=== PATIENT | female | born 1935 | race Caucasian/White ===

== ENCOUNTER → 2023-12-11 06:19 | Outpatient (REF) | payer MEDICARE, OTHER, SELFPAY ==
[2023-12-11 10:22] LABS: % Basophils 0.8 % (0-2); % Eosinophils 3.8 % (0-6); % Immature Granulocytes 0.5 % (0-0.5); % Lymphocytes 32.1 % (20.5-51.1); % Monocytes 8.1 % (1.7-9.3); % Neutrophils 54.7 % (42.2-75.2); Absolute Basophils 0.1 10^3/uL (0-0.2); Absolute Eosinophils 0.3 10^3/uL (0-0.7); Absolute Lymphocytes 2.1 10^3/uL (1.2-3.4); Absolute Monocytes 0.5 10^3/uL (0.1-0.6); Absolute Neutrophils 3.6 10^3/uL (1.4-6.5); Hematocrit 38.8 % (37.0-47.0); Hemoglobin 12.7 g/dL (12.0-16.0); Mean Corp Hgb Conc. 32.7 g/dL (33.0-37.0); Mean Corpuscular Hgb 28.2 pg (27.0-31.0); Nucleated Red Blood Cells % 0 %; Platelet Count 238 10^3/uL (130-400); Red Blood Cell Count 4.51 10^6/uL (4.20-5.40); Red Cell Dist. Width 14.4 % (11.5-14.5); Reticulocyte Count 1.2 % (0.4-2.8); White Blood Cell Count 6.6 10^3/uL (4.8-10.8)
[2023-12-11 10:48] LABS: ALT (SGPT) 15 U/L (0-35); AST (SGOT) 26 U/L (14-36); Albumin 3.8 g/dl (3.5-5.0); Alkaline Phosphatase 93 U/L (38-126); Amylase 96 U/L (30-110); Blood Urea Nitrogen 17 mg/dl (7-17); Calcium 9.2 mg/dl (8.4-10.2); Carbon Dioxide 28 mmol/L (22-30); Chloride 107 mmol/L (98-107); Creatine Phosphokinase 145 U/L (30-135); GGTP 11 U/L (12-43); Glucose 93 mg/dl (70-99); HDL Cholesterol 59 mg/dl; Iron 95 ug/dl (37-170); LDL Cholesterol, Calculated 160 mg/dl; Lipase 81 U/L (23-300); Magnesium 2.1 mg/dl (1.6-2.3); Potassium 4.1 mmol/L (3.5-5.1); Sodium 141 mmol/L (135-145); Total Bilirubin 0.6 mg/dl (0.2-1.3); Total Cholesterol 246 mg/dl (50-199); Total Protein 6.4 g/dl (6.3-8.2); Triglyceride 138 mg/dl (10-149); Uric Acid 4.1 mg/dl (2.5-6.2); Very Low Density Lipoprotein 27 mg/dl (0-30); eGFR > 60.00
[2023-12-11 10:57] LABS: Percent Saturation 35 % (20-50); Total Iron Binding Capacity 271 ug/dl (265-497)
[2023-12-11 11:05] LABS: Urine Albumin Negative (Neg - Trace); Urine Bilirubin Negative (Negative); Urine Character Clear (Clear); Urine Color Yellow; Urine Glucose Negative (Negative); Urine Ketone Negative (Negative); Urine Leukocyte 2+ (Negative); Urine Nitrite Negative (Negative); Urine Occult Blood 2+ (Negative); Urine Specific Gravity 1.015 (<1.030); Urine Urobilinogen Negative (Neg - 1+)
[2023-12-11 11:12] LABS: Free T4 1.17 ng/dl (0.78-2.19); Vitamin D, 25-OH*** 28.7 ng/mL (30-80)
[2023-12-11 11:25] LABS: TSH 2.72 uIU/ml (0.47-4.68)
[2023-12-11 11:30] LABS: Ferritin 53.8 ng/ml (11.1-264.0)
[2023-12-11 11:42] LABS: Erythrocyte Sed Rate 15 mm/hour (0-20)
[2023-12-11 11:54] LABS: Glycohemoglobin (HgbA1c) 5.8 % (4.0-5.6)
[2023-12-11 12:01] LABS: Vitamin B12 266 pg/ml (239-931)
[2023-12-11 12:11] LABS: Microalbumin, Random Urine 0.9 mg/dl (0.6-1.7); Microalbumin/creatinine Ratio 11.7 mg/g
[2023-12-11 14:34] LABS: Urine Mucus Many; Urine Squamous Cell >30 /LPF (Few)
[2023-12-11 14:35] LABS: Urine Amorphous Seen
[2023-12-11 14:37] LABS: Urine Bacteria Many (Negative); Urine White Cell >100 /HPF (0-5)
[2023-12-11 14:38] LABS: Urine Hyaline Cast 0-2 /LPF (0-2)
[2023-12-12 21:23] LABS: Zinc 56.1 ug/dL (60.0-120.0)
[2023-12-13 15:50] LABS: Rheumatoid Agglutinin Less Than 10 IU (<10 IU)
== END ==
LOC: HWLAB 06:19
PROVIDERS: ATTENDING PHYSICIAN Family Medicine
DX: I49.9 Cardiac arrhythmia, unspecified (principal); E11.9 Type 2 diabetes mellitus without complications; E78.5 Hyperlipidemia, unspecified; E03.9 Hypothyroidism, unspecified; M10.9 Gout, unspecified; E60 Dietary zinc deficiency; E55.9 Vitamin D deficiency, unspecified; M12.9 Arthropathy, unspecified; D64.9 Anemia, unspecified; E61.1 Iron deficiency; E83.42 Hypomagnesemia; N39.0 Urinary tract infection, site not specified; E78.00 Pure hypercholesterolemia, unspecified
CPT/HCPCS: 36415; 80053; 80061; 81003; 81015; 82043; 82150; 82306; 82550; 82570; 82607; 82728; 82746; 82977; 83036; 83540; 83550; 83690; 83735; 84439; 84443; 84550; 84630; 85025; 85045; 85652; 86140; 86430; 87086; 93005

== ENCOUNTER → 2024-03-28 14:44 | Outpatient (REF) | payer MEDICARE, OTHER, SELFPAY | LOC: RAD 14:44 | PROVIDERS: ATTENDING PHYSICIAN Family Medicine | DX: I82.493 Acute embolism and thrombosis of other specified deep vein of lower extremity, bilateral (principal) | CPT/HCPCS: 93970 ==

== ENCOUNTER → 2024-04-11 07:24 | Outpatient (REF) | payer MEDICARE, OTHER, SELFPAY | LOC: DHCBC/DCA 07:24 | PROVIDERS: ATTENDING PHYSICIAN Internal Medicine; FAMILY PHYSICIAN Family Medicine | DX: I49.3 Ventricular premature depolarization (principal); R06.09 Other forms of dyspnea | CPT/HCPCS: 78452; 93017; A9500; J2785 ==

== ENCOUNTER → 2024-04-16 13:55 | Outpatient (REF) | payer MEDICARE, OTHER, SELFPAY | LOC: HWRCS 13:55 | PROVIDERS: ATTENDING PHYSICIAN Internal Medicine; FAMILY PHYSICIAN Family Medicine | DX: I49.3 Ventricular premature depolarization (principal); R06.09 Other forms of dyspnea | CPT/HCPCS: 93306 ==

== ENCOUNTER 2024-04-24 08:55 | Inpatient (IN) | payer MEDICARE, OTHER, SELFPAY ==
[2024-04-02 13:44] VITALS: BMI 24.9
[2024-04-02 14:23] LABS: Hematocrit 34.8 % (37.0-47.0); Hemoglobin 11.3 g/dL (12.0-16.0); Mean Corp Hgb Conc. 32.5 g/dL (33.0-37.0); Mean Corpuscular Hgb 28.8 pg (27.0-31.0); Mean Corpuscular Volume 88.5 fL (81.0-99.0); Mean Platelet Volume 11.2 fL (7.4-10.4); Platelet Count 276 10^3/uL (130-400); Red Blood Cell Count 3.93 10^6/uL (4.20-5.40); White Blood Cell Count 7.4 10^3/uL (4.8-10.8)
[2024-04-02 16:01] LABS: ALT (SGPT) 14 U/L (0-35); AST (SGOT) 23 U/L (14-36); Albumin 3.8 g/dl (3.5-5.0); Alkaline Phosphatase 82 U/L (38-126); Blood Urea Nitrogen 17 mg/dl (7-17); Calcium 9.2 mg/dl (8.4-10.2); Carbon Dioxide 27 mmol/L (22-30); Chloride 104 mmol/L (98-107); Estimated Creatinine Clearance 28 ml/min; Glucose 111 mg/dl (70-99); Potassium 4.1 mmol/L (3.5-5.1); Sodium 143 mmol/L (135-145); Total Bilirubin 0.2 mg/dl (0.2-1.3); Total Protein 6.3 g/dl (6.3-8.2); eGFR 54.19
[2024-04-03 08:21] LABS: Glycohemoglobin (HgbA1c) 5.4 % (4.0-5.6)
[2024-04-21 08:27] VITALS: BMI 24.9
[2024-04-24] VITALS (13 sets, daily range): BP systolic 92–163; BP diastolic 37–80; PULSE 95
[2024-04-24] MEDS: TYLENOL 650 MG PO ×4 (09:43→23:12)
[2024-04-24] MEDS: CELEBREX 200 MG PO (09:43)
--- NOTE | 2024-04-24 13:42 | W.PN.ORTHO ---
Today's Communication / Plan
-
D/c when clinically stable.
Assessment
.
Distal Motor Intact: Yes
Dressing:
Clean, dry and intact.
Assessment:
R knee OA s/p R TKA w/ Dr Presley 04/24/24
DVT prophylaxis - ASA, b/l venous foot pumps
Frequent PVCs w/ palps � monitor on tele
- Continue Metoprolol
GERD and Hiatal hernia - add Pepcid HS
Peripheral neuropathy - consider Gabapentin or Lyrica
Mild pre-op anemia - non-invasive hgb in AM
HLD
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
1st degree AV block
Mild-moderate valvular disease
Chronic BOOGIE
Diverticulitis s/p sigmoid resection, colostomy and subsequent reversal
Fatty liver disease
Hepatic and renal cysts
Multilevel DDD w/ stenosis
Hypothyroidism
OAB
H/o recurrent UTIs
BCC, nose, s/p excision
Anxiety
Osteoporosis
Insomnia
H/o tobacco abuse
Plan
.
Surgery / Date: R TKA w/ Dr Presley 04/24/24
DVT Prophylaxis: Aspirin
Activity:
Out of bed.
PT/OT
Discharge Plan: Home w/ Outpatient PT
Subjective
.
.:
Patient resting comfortably in PACU.
Minimal R knee pain currently reported.
Denies any new significant complaints.
Vital Signs and Labs
.
Vital Signs and Labs:
Lab Results
04/02/24 13:42
04/02/24 13:42
Physical Exam
-
HEENT: No pallor, cyanosis, or jaundice. Throat clear.
NECK: Supple. No JVD.
RESPIRATORY: Lungs clear to auscultation.
CVS: S1, S2 normal. RRR.
ABDOMEN: Soft, non-tender. No distension.
EXTREMITIES: Strength equal, no calf pain with palpation/dorsiflexion. Calves soft.
WOOD TURNING LATHE OPERATOR: AOx3. No focal deficits. acid regenerator grossly intact
[2024-04-24] MEDS: ROXICODONE 5 MG PO ×2 (13:52→23:10)
[2024-04-24] MEDS: NSS 1000 IV (14:20)
--- NOTE | 2024-04-24 14:31 | PTCARENOTE ---
Patient received from PACU in bed; Patient on room air, oxygen saturation 96%; case monitor applied; Right knee primaseal clean/dry/intact; Bilateral pedal pulses +2 to palpation; Patient denies numbness and/or tingling at this time; Patient
denies nausea/vomiting at this time; Patient states pain is a four out of ten at this time; Daughter at bedside; Patient and daughter oriented to room and unit; Call tadeo within reach; Bed in lowest position, wheels locked; Assessment ongoing
[2024-04-24] MEDS: TOPROL XL 25 MG PO (15:01)
[2024-04-24] MEDS: ANCEF 5 IV (17:06)
[2024-04-24] MEDS: ASPIRIN 325 MG PO (17:06)
[2024-04-24] MEDS: DECADRON 4 MG PO (19:59)
[2024-04-24] MEDS: BACTROBAN 2% OINTMENT 1 APPLIC NASAL (19:59)
[2024-04-24] MEDS: SENOKOT 17.2 MG PO (19:59)
[2024-04-24] MEDS: COLACE 100 MG PO (19:59)
[2024-04-24] MEDS: PEPCID 20 MG PO (22:31)
[2024-04-24] MEDS: MELATONIN 5 MG PO (22:32)
[2024-04-24] MEDS: ROXICODONE PO (22:37)
[2024-04-25] MEDS: ANCEF 5 IV (01:10)
[2024-04-25 03:03] VITALS: BP 127/66
[2024-04-25] MEDS: TYLENOL 650 MG PO ×3 (03:08→11:39)
[2024-04-25] MEDS: SYNTHROID 50 MCG PO (05:02)
[2024-04-25] MEDS: SYNTHROID 12.5 MCG PO (05:02)
[2024-04-25 07:25] VITALS: BP 144/71
[2024-04-25] MEDS: ROXICODONE 5 MG PO (08:23)
[2024-04-25] MEDS: CELEBREX 200 MG PO (08:23)
[2024-04-25] MEDS: ASPIRIN 325 MG PO (08:23)
[2024-04-25] MEDS: DECADRON 4 MG PO (08:24)
[2024-04-25] MEDS: TOPROL XL 25 MG PO (08:24)
[2024-04-25] MEDS: COLACE 100 MG PO (08:24)
[2024-04-25] MEDS: SENOKOT 17.2 MG PO (08:24)
[2024-04-25] MEDS: BACTROBAN 2% OINTMENT 1 APPLIC NASAL (08:25)
--- NOTE | 2024-04-25 09:51 | W.PN.ORTHO ---
Today's Communication / Plan
-
Await PT and OT recs.
D/c later today if remaining clinically stable.
Assessment
.
Distal Motor Intact: Yes
Dressing:
Moderate old incisional bleeding at proximal end of dressing - will change.
Assessment:
R knee OA s/p R TKA w/ Dr Presley 04/24/24
DVT prophylaxis - ASA, b/l venous foot pumps
Frequent PVCs w/ palps � maintaining NSR w/ PVCs on tele - asymptomatic
- Continue Metoprolol
GERD and Hiatal hernia - added Pepcid HS
Peripheral neuropathy - consider Gabapentin or Lyrica
Mild pre-op anemia - non-invasive hgb 11.5 POD 1
HLD
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
1st degree AV block
Mild-moderate valvular disease
Chronic BOOGIE
Diverticulitis s/p sigmoid resection, colostomy and subsequent reversal
Fatty liver disease
Hepatic and renal cysts
Multilevel DDD w/ stenosis
Hypothyroidism
OAB
H/o recurrent UTIs
BCC, nose, s/p excision
Anxiety
Osteoporosis
Insomnia
H/o tobacco abuse
Plan
.
Surgery / Date: R TKA w/ Dr Presley 04/24/24
DVT Prophylaxis: Aspirin
Activity:
Out of bed.
PT/OT
Discharge Plan: Home w/ Outpatient PT
Subjective
.
.:
Patient resting comfortably in bed.
R knee pain minimal w/ current pain meds.
Denies any new significant complaints.
Eager for potential d/c today.
Vital Signs and Labs
.
Vital Signs and Labs:
Lab Results
04/02/24 13:42
04/02/24 13:42
Temp Pulse Resp BP Pulse Ox
98.5 F 71 14 144/71 98
04/25/24 07:25 04/25/24 08:24 04/25/24 07:25 04/25/24 08:24 04/25/24 07:25
Non-invasive Hgb result: 11.5
Physical Exam
-
HEENT: No pallor, cyanosis, or jaundice. Throat clear.
NECK: Supple. No JVD.
RESPIRATORY: Lungs clear to auscultation.
CVS: S1, S2 normal. RRR.�
ABDOMEN: Soft, non-tender. No distension.
EXTREMITIES: Expected post-surgical R knee edema. Strength equal no calf pain with palpation/dorsiflexion. Calves soft.
FUEL TESTING TECHNICIAN: AOx3. No focal deficits. hvac installation technician grossly intact
--- NOTE | 2024-04-25 10:02 | CM ---
Reviewed the chart notes and spoke with the patient at the bedside. The patient's daughter resides with her in a one story home with two steps to enter. The patient has a rolling walker, cane, shower chair, shower rails, and a raised toilet seat.
The patient reports no VN or SNF in the past. The patient confirmed her pharmacy of choice is the [facility]. CM continues to be available to patient/family and is monitoring medical plan for needs at discharge.
Plan: Discharge to home when medically stable. Patient has an appointment to start outpatient therapy on Sunday at [facility] in [place]. The patient's daughter will provide transportation home and to appointments.
--- NOTE | 2024-04-25 10:08 | W.DS.TRANS ---
DC Summary - Project Controls Scheduler
-
Discharge Instructions:
Sleep Apnea Risk Low
Discharge Diagnosis/Procedures R knee OA s/p R TKA w/ Dr Presley 04/24/24
Diet Regular
Activity As tolerated,With Walker
Driving Restrictions Not until seen by your Dr
Bathing Restrictions OK to Shower
Other Services PT
Wound Care Dressing to be removed 1 week post-surgery.
Instructions:
Stand-Alone Forms: Total Hip/Knee Replacement D/C
Changes to Home Medications: Yes
Discharge Medications:
DC Medications w/original date entered in [email or web address]
levothyroxine 50 mcg tablet 50 mcg PO DAILY Thyroid 08/03/16
levothyroxine 25 mcg tablet 12.5 mcg PO DAILY Thyroid 04/18/24
melatonin 10 mg tablet 10 mg PO HS PRN Insomnia 04/18/24
metoprolol succinate 25 mg tablet,extended release 24 hr 25 mg PO DAILY Blood Pressure 04/18/24
acetaminophen 500 mg tablet 1,000 mg (2 x 500 mg) PO Q6H #1 tab 04/25/24
aspirin 325 mg tablet 325 mg PO DAILY #30 tabs 04/25/24
celecoxib 100 mg capsule (Celebrex) 100 mg PO BID #30 caps 04/25/24
dexamethasone 4 mg tablet 4 mg PO Q12H Anti-inflammatory #7 tabs 04/25/24
docusate sodium 100 mg capsule 100 mg PO BID #30 caps 04/25/24
lorazepam 0.5 mg tablet 0.5 mg PO BIDPRN PRN anxiety/muscle spasms #1 tab 04/25/24
ondansetron HCl 4 mg tablet 4 mg PO Q6H PRN nausea and vomiting #30 tabs 04/25/24
oxycodone 5 mg tablet 5 - 10 mg (1 - 2 x 5 mg) PO Q6H PRN moderate-severe pain #30 tabs 04/25/24
sennosides 8.6 mg tablet (senna) 17.2 mg (2 x 8.6 mg) PO BID #30 tabs 04/25/24
Home Medication Changes
acetaminophen 500 mg tablet 1,000 mg (2 x 500 mg) PO Q6H #1 tab 04/25/24
aspirin 325 mg tablet 325 mg PO DAILY #30 tabs 04/25/24
celecoxib 100 mg capsule (Celebrex) 100 mg PO BID #30 caps 04/25/24
dexamethasone 4 mg tablet 4 mg PO Q12H Anti-inflammatory #7 tabs 04/25/24
docusate sodium 100 mg capsule 100 mg PO BID #30 caps 04/25/24
ondansetron HCl 4 mg tablet 4 mg PO Q6H PRN nausea and vomiting #30 tabs 04/25/24
oxycodone 5 mg tablet 5 - 10 mg (1 - 2 x 5 mg) PO Q6H PRN moderate-severe pain #30 tabs 04/25/24
sennosides 8.6 mg tablet (senna) 17.2 mg (2 x 8.6 mg) PO BID #30 tabs 04/25/24
Pending Results: No
[2024-04-25 10:29] VITALS: BP 130/66; PULSE 71; O2SAT 99
[2024-04-25] MEDS: PREVNAR 20 0.5 ML IM (10:47)
[2024-04-25 11:08] VITALS: BP 137/56
[2024-04-25 12:56] VITALS: BP 129/63; PULSE 65
== END 2024-04-25 13:04 | disposition home or self-care (01) | DRG 470 ==
LOC: 2 SOUTH 08:55
PROVIDERS: ADMITTING PHYSICIAN Orthopaedic Surgery; FAMILY PHYSICIAN Family Medicine
PROC: 0SRC0J9 Replacement of Right Knee Joint with Synthetic Substitute, Cemented, Open Approach (ICD-10-PCS; 2024-04-24)
DX: M17.11 Unilateral primary osteoarthritis, right knee (principal); K21.9 Gastro-esophageal reflux disease without esophagitis; E78.5 Hyperlipidemia, unspecified
CPT/HCPCS: 36415; 73560; 80053; 83036; 85027; 86850; 86900; 86901; 87070; 90677; 97110; 97116; 97162; 97166; 97535; C1713; C1776; G0009

== ENCOUNTER → 2024-09-23 09:48 | Outpatient (REF) | payer MEDICARE, OTHER, SELFPAY ==
[2024-09-23 12:51] LABS: % Basophils 0.8 % (0-2); % Immature Granulocytes 0.2 % (0-0.5); % Lymphocytes 32.9 % (20.5-51.1); % Monocytes 7.8 % (1.7-9.3); % Neutrophils 56.3 % (42.2-75.2); Absolute Basophils 0.1 10^3/uL (0-0.2); Absolute Eosinophils 0.1 10^3/uL (0-0.7); Absolute Lymphocytes 2.2 10^3/uL (1.2-3.4); Absolute Monocytes 0.5 10^3/uL (0.1-0.6); Absolute Neutrophils 3.7 10^3/uL (1.4-6.5); Hematocrit 38.2 % (37.0-47.0); Hemoglobin 12.2 g/dL (12.0-16.0); Mean Corp Hgb Conc. 31.9 g/dL (33.0-37.0); Mean Corpuscular Hgb 27.6 pg (27.0-31.0); Mean Corpuscular Volume 86.4 fL (81.0-99.0); Mean Platelet Volume 11.5 fL (7.4-10.4); Nucleated Red Blood Cells % 0 %; Platelet Count 278 10^3/uL (130-400); Red Blood Cell Count 4.42 10^6/uL (4.20-5.40); Red Cell Dist. Width 14.6 % (11.5-14.5); White Blood Cell Count 6.6 10^3/uL (4.8-10.8)
[2024-09-23 13:30] LABS: ALT (SGPT) 12 U/L (0-35); AST (SGOT) 21 U/L (14-36); Alkaline Phosphatase 99 U/L (38-126); Blood Urea Nitrogen 17 mg/dl (7-17); Calcium 9.1 mg/dl (8.4-10.2); Carbon Dioxide 26 mmol/L (22-30); Chloride 108 mmol/L (98-107); Glucose 81 mg/dl (70-99); Potassium 4.8 mmol/L (3.5-5.1); Sodium 143 mmol/L (135-145); Total Bilirubin 0.6 mg/dl (0.2-1.3); Total Protein 6.5 g/dl (6.3-8.2); eGFR > 60.00
[2024-09-23 13:32] LABS: Free T4 1.38 ng/dl (0.78-2.19)
[2024-09-23 13:46] LABS: TSH 0.81 uIU/ml (0.47-4.68)
== END ==
LOC: HWLAB 09:48
PROVIDERS: ATTENDING PHYSICIAN Family Medicine
DX: E11.9 Type 2 diabetes mellitus without complications (principal); D64.9 Anemia, unspecified; E03.9 Hypothyroidism, unspecified
CPT/HCPCS: 36415; 80053; 84439; 84443; 85025

== ENCOUNTER → 2024-10-07 10:40 | Outpatient (REF) | payer MEDICARE, OTHER, SELFPAY ==
[2024-10-07 19:41] LABS: Urine Albumin Negative (Neg - Trace); Urine Bilirubin Negative (Negative); Urine Character Slightly Cloudy (Clear); Urine Color Yellow; Urine Glucose Negative (Negative); Urine Ketone Negative (Negative); Urine Leukocyte 2+ (Negative); Urine Nitrite Positive (Negative); Urine Occult Blood 3+ (Negative); Urine Urobilinogen Negative (Neg - 1+)
[2024-10-07 19:47] LABS: Urine Bacteria Many (Negative); Urine Squamous Cell 0-2 /LPF (Few); Urine White Cell 30-40 /HPF (0-5)
== END ==
LOC: HWLAB 10:40
PROVIDERS: ATTENDING PHYSICIAN Family Medicine
DX: N39.0 Urinary tract infection, site not specified (principal)
CPT/HCPCS: 81003; 81015; 87077; 87086; 87186

== ENCOUNTER → 2025-01-15 07:41 | Outpatient (REF) | payer MEDICARE, OTHER, SELFPAY | LOC: HWEVLT 07:41 | PROVIDERS: ATTENDING PHYSICIAN Radiology Diagnostic Radiology | DX: I83.892 Varicose veins of left lower extremity with other complications (principal) | CPT/HCPCS: 93971 ==

== ENCOUNTER → 2025-02-11 14:00 | Outpatient (REF) | payer MEDICARE, OTHER, SELFPAY | LOC: RAD 14:00 | PROVIDERS: ATTENDING PHYSICIAN Surgery Vascular Surgery; FAMILY PHYSICIAN Family Medicine | DX: I73.9 Peripheral vascular disease, unspecified (principal); I65.23 Occlusion and stenosis of bilateral carotid arteries; I65.29 Occlusion and stenosis of unspecified carotid artery | CPT/HCPCS: 93880; 93922; 93925 ==

== ENCOUNTER → 2025-02-16 11:30 | Outpatient (REF) | payer MEDICARE, OTHER, SELFPAY ==
[2025-02-16 16:52] LABS: Urine Character Cloudy (Clear)
[2025-02-16 18:37] LABS: Urine White Cell >100 /HPF (0-5)
== END ==
LOC: HWLAB 11:30
PROVIDERS: ATTENDING PHYSICIAN Family Medicine
DX: N39.0 Urinary tract infection, site not specified (principal)
CPT/HCPCS: 81003; 81015; 87086; 87088; 87186

== ENCOUNTER → 2025-04-10 11:27 | Outpatient (REF) | payer MEDICARE, OTHER, SELFPAY ==
[2025-04-10 16:03] LABS: Hematocrit 35.9 % (37.0-47.0); Hemoglobin 11.6 g/dL (12.0-16.0); Mean Corp Hgb Conc. 32.3 g/dL (33.0-37.0); Mean Corpuscular Volume 89.5 fL (81.0-99.0); Nucleated Red Blood Cells % 0 %; Platelet Count 236 10^3/uL (130-400); Red Cell Dist. Width 14.5 % (11.5-14.5)
[2025-04-10 17:29] LABS: TSH 0.62 uIU/ml (0.47-4.68)
== END ==
LOC: HWLAB 11:27
PROVIDERS: ATTENDING PHYSICIAN Family Medicine
DX: E03.9 Hypothyroidism, unspecified (principal); D64.9 Anemia, unspecified
CPT/HCPCS: 36415; 84439; 84443; 85025

== ENCOUNTER → 2025-05-05 12:45 | Outpatient (REF) | payer MEDICARE, OTHER, SELFPAY | LOC: HWRAD 12:45 | PROVIDERS: ATTENDING PHYSICIAN Family Medicine | DX: E04.1 Nontoxic single thyroid nodule (principal) | CPT/HCPCS: 76536 ==

== ENCOUNTER → 2025-05-25 09:09 | Outpatient (REF) | payer MEDICARE, OTHER, SELFPAY | LOC: DHVS 09:09 | PROVIDERS: ATTENDING PHYSICIAN Surgery Vascular Surgery | DX: I73.9 Peripheral vascular disease, unspecified (principal) | CPT/HCPCS: 93922 ==